=== PATIENT | male | born 1935 | race Two or more races ===

== ENCOUNTER 2018-09-28 14:54 | Inpatient (IN) | payer OTHER ==
[~2018-09-28] VITALS: Ht 167.6 cm; Wt 74.4 kg
[~2018-09-28 14:54] MED LIST: CARDIZEM CD180 MG PO; COUMADIN5 MG PO; COUMADIN6 MG; DILTIAZEM 24HR180 MG; ENALAPRIL MALE2.5 MG PO; FUROSEMIDE20 MG; FUROSEMIDE20 MG PO; SPIRONOLACTONE50 MG; TOPROL XL50 M1
[2018-09-28] MEDS ORDERED: COUMADIN5 MG (15:42)
[2018-09-28] MEDS ORDERED: DILT-XR180 MG (15:43)
== END 2018-10-06 14:52 | disposition home or self-care (01) | DRG 813 ==
LOC: ER 14:54 → MEDJ 09-29 12:55
PROVIDERS: ADMIT Specialist
PROC: B246ZZZ Ultrasonography of Right and Left Heart (ICD-10-PCS; principal; 2018-09-29)
PROC: BW21Y0Z Computerized Tomography (CT Scan) of Abdomen and Pelvis using Other Contrast, Unenhanced and Enhanced (ICD-10-PCS; 2018-09-29)
PROC: 3E0F7GC Introduction of Other Therapeutic Substance into Respiratory Tract, Via Natural or Artificial Opening (ICD-10-PCS; 2018-09-29)
PROC: 4A12X4Z Monitoring of Cardiac Electrical Activity, External Approach (ICD-10-PCS; 2018-09-29)
PROC: 0DJ08ZZ Inspection of Upper Intestinal Tract, Via Natural or Artificial Opening Endoscopic (ICD-10-PCS; 2018-09-29)
PROC: BD24YZZ Computerized Tomography (CT Scan) of Colon using Other Contrast (ICD-10-PCS; 2018-10-02)
DX: D68.318 Other hemorrhagic disorder due to intrinsic circulating anticoagulants, antibodies, or inhibitors (principal); K92.1 Melena; N17.8 Other acute kidney failure; J44.1 Chronic obstructive pulmonary disease with (acute) exacerbation; D62 Acute posthemorrhagic anemia; Q61.02 Congenital multiple renal cysts; I50.22 Chronic systolic (congestive) heart failure; I48.2 Chronic atrial fibrillation; I11.0 Hypertensive heart disease with heart failure; I08.3 Combined rheumatic disorders of mitral, aortic and tricuspid valves; E86.0 Dehydration; E87.8 Other disorders of electrolyte and fluid balance, not elsewhere classified; K57.30 Diverticulosis of large intestine without perforation or abscess without bleeding; K40.20 Bilateral inguinal hernia, without obstruction or gangrene, not specified as recurrent; N20.0 Calculus of kidney; K44.9 Diaphragmatic hernia without obstruction or gangrene; K31.7 Polyp of stomach and duodenum; Z79.01 Long term (current) use of anticoagulants

== ENCOUNTER 2020-05-29 19:29 | Emergency (ER) | payer OTHER ==
[~2020-05-29] VITALS: Ht 167.6 cm; Wt 75.7 kg
[~2020-05-29 19:29] MED LIST changes: +COUMADIN5 MG; +DILT-XR180 MG
[2020-05-29] MEDS ORDERED: SPIRONOLACTONE25 MG (20:26)
== END 2020-05-29 22:37 | disposition home or self-care (01) ==
LOC: ER 19:29
DX: D68.69 Other thrombophilia (principal)

== ENCOUNTER 2020-09-11 19:20 | Emergency (ER) | payer OTHER ==
[~2020-09-11] VITALS: Ht 167.6 cm; Wt 74.8 kg
[~2020-09-11 19:20] MED LIST changes: +SPIRONOLACTONE25 MG
[2020-09-11] MEDS ORDERED: SINGULAIR10 MG (19:45)
[2020-09-11] MEDS ORDERED: ENTRESTO 24 MG1 EACH (19:46)
[2020-09-11] MEDS ORDERED: ALDACTONE25 MG (19:47)
[2020-09-11] MEDS ORDERED: LASIX20 MG (19:48)
== END 2020-09-11 23:27 | disposition home or self-care (01) ==
LOC: ER 19:20
DX: R19.7 Diarrhea, unspecified (principal); I48.91 Unspecified atrial fibrillation

== ENCOUNTER 2021-07-12 13:55 | Emergency (ER) | payer OTHER ==
[~2021-07-12] VITALS: Ht 172.7 cm; Wt 74.8 kg
[~2021-07-12 13:55] MED LIST changes: +ALDACTONE25 MG; +ENTRESTO 24 MG1 EACH; +LASIX20 MG; +SINGULAIR10 MG
[2021-07-12] MEDS ORDERED: JANTOVEN3 MG PO (14:20)
[2021-07-12] MEDS ORDERED: DIGOXIN125 MCG PO (14:20)
[2021-07-12] MEDS ORDERED: WARFARIN SODIUM4 MG PO (14:20)
[2021-07-12] MEDS ORDERED: FLONASE16 GM NS (14:21)
[2021-07-12] MEDS ORDERED: PROAIR HFA8.5 GM IH (14:21)
[2021-07-12] MEDS ORDERED: METOPROLOL SUCC25 MG PO (14:23)
[2021-07-12] MEDS ORDERED: MONTELUKAST SOD10 MG PO (14:23)
[2021-07-12] MEDS ORDERED: FUSION PLUS CA1 EACH (14:24)
[2021-07-12] MEDS ORDERED: TRELEGY ELLIPT1 EACH IH (14:26)
[2021-07-12] MEDS ORDERED: [UNRECOGNIZED DRUG - OTHER] PO (14:26)
[2021-07-12] MEDS ORDERED: GILTUSS ALLERG118 ML PO (14:32)
== END 2021-07-12 19:48 | disposition home or self-care (01) ==
LOC: ER 13:55
DX: J44.1 Chronic obstructive pulmonary disease with (acute) exacerbation (principal); I48.91 Unspecified atrial fibrillation; Z88.6 Allergy status to analgesic agent; J20.9 Acute bronchitis, unspecified; J44.0 Chronic obstructive pulmonary disease with (acute) lower respiratory infection; Z20.822 Contact with and (suspected) exposure to COVID-19

== ENCOUNTER 2021-10-02 10:40 | Outpatient (CLI) | payer OTHER ==
[~2021-10-02 10:40] MED LIST changes: +DIGOXIN125 MCG PO; +FLONASE16 GM NS; +FUSION PLUS CA1 EACH; +GILTUSS ALLERG118 ML PO; +JANTOVEN3 MG PO; +METOPROLOL SUCC25 MG PO; +MONTELUKAST SOD10 MG PO; +PROAIR HFA8.5 GM IH; +TRELEGY ELLIPT1 EACH IH; +WARFARIN SODIUM4 MG PO; +[UNRECOGNIZED DRUG - OTHER] PO
== END 2021-10-02 11:30 | disposition home or self-care (01) ==
LOC: ASH CLINIC 10:40
PROVIDERS: ATTEND Emergency Medicine
DX: U07.1 COVID-19 (principal)

== ENCOUNTER 2022-09-23 18:53 | Emergency (ER) | payer OTHER ==
[~2022-09-23] VITALS: Ht 160 cm; Wt 77.1 kg
== END 2022-09-23 21:19 | disposition home or self-care (01) ==
LOC: ER 18:53
DX: J06.9 Acute upper respiratory infection, unspecified (principal); Z88.6 Allergy status to analgesic agent; Z20.822 Contact with and (suspected) exposure to COVID-19

== ENCOUNTER 2023-01-01 18:07 | Emergency (ER) | payer OTHER ==
[~2023-01-01] VITALS: Ht 165.1 cm; Wt 85.3 kg
[2023-01-01] MEDS ORDERED: ENTRESTO 24 MG1 EACH PO (18:31)
[2023-01-01] MEDS ORDERED: ALDACTONE25 MG PO (18:32)
[2023-01-01] MEDS ORDERED: TRELEGY ELLIPT1 EACH IH (18:32)
[2023-01-01] MEDS ORDERED: IPRATROPIU0.2 MG/1 M IH (18:32)
[2023-01-01 21:11] LABS: HEMATOCRIT 38.5 % (39.0-48.0); HEMOGLOBIN 12.5 g/dL (13-16.00); MEAN CELL VOLUME 98.6 fL (80.0-100.00); MEAN CORPUSCULAR HEMOGLOBIN 31.9 pg (27.00-32.0); MEAN CORPUSCULAR HGB CONC 32.4 g/dl (32.0-36.0); PLATELET COUNT 177 K/uL (150-450); RED BLOOD COUNT 3.91 M/uL (4.00-6.00)
[2023-01-01 21:18] LABS: INR 2.16; PARTIAL THROMBOPLASTIN TIME 36.2 SECONDS (22.0-34.0)
[2023-01-01 21:47] LABS: PROTHROMBIN TIME 21.4 SECONDS (9.0-11.5)
== END 2023-01-01 22:15 | disposition home or self-care (01) ==
LOC: ER 18:07
PROVIDERS: General Practice
DX: J06.9 Acute upper respiratory infection, unspecified (principal); I10 Essential (primary) hypertension; Z88.6 Allergy status to analgesic agent; Z20.822 Contact with and (suspected) exposure to COVID-19